=== PATIENT | female | born 2000 | race Caucasian/White ===

== ENCOUNTER 2023-07-21 11:41 | Outpatient (AMB) | payer OTHER, SELFPAY ==
[2023-07-21 12:21] VITALS: BP 118/70; PULSE 68; O2SAT 99; BMI 37.0
--- NOTE | 2023-07-21 12:21 | MHC.PC.OV ---
Vital Signs 07/21/23 12:21 Height 4 ft 7.5 in Weight 162 lb BMI 37.0 BP 118/70 Blood Pressure Location Lt brachial Position Sitting Pulse 68 Pulse Source Pulse Oximeter Pulse Oximetry (%) 99 Oxygen Delivery Method Room Air Intake Visit Reasons: Software Development Specialist, diabetes Intake Note: Patient is here as a new patient with diabetes. She has had issues with irregular menses. Is last menstrual period known: Yes Last menstrual period: 05/10/23 Allergies No Known Allergies Allergy (Verified 07/21/23 12:23) Tobacco use date assessed: 07/21/23 Dental Screening Dental Screen Date: 07/21/23 Did you have a dental visit in the last 12 months?: Yes Did you have a dental problem in the last 6 months where you did not have access to dental care?: No Was dental information given to patient?: Patient has dentist HPI Software Development Specialist, diabetes HPI Details New Patient? ?? Prior PCP:? [facility] Last office visit/CPE:? 2 yrs Acute issue(s):? irreg menses Concern for DM & Fam Hx Seizure-like activity most recently last summer ?? PMHx:?Downs Syndrome, Thyroid, SurgHx:?None FHx:?Mom PreDM, hypothyroid, HLD, Ductal Carcinoma Insitu in her 60s.. Dad: DM, HTN. SocHx: Nonsmoker. EtOH None PFSH Medical History (Updated 07/21/23 @ 13:22 by Lio Yu) Down's syndrome Surgical History (Updated 07/21/23 @ 12:31 by Delmy Goldman CMA) No pertinent past surgical history Family History (Updated 07/21/23 @ 12:35 by Delmy Goldman CMA) Mother Hypothyroid Breast tumor Osteopenia High cholesterol Father High cholesterol Diabetes Social History Housing: House Patient Tobacco Use Status: Never used Tobacco e-Cigarette/Vaping Use: Never Used service: No Current occupational status: employed Current occupation: works at a [employer] Cognitive needs: No Hearing needs: No Vision needs: Yes (Patient wears glasses.) Female Reproductive History Menstrual Date of last menstrual period: 05/10/23 Questionnaire PHQ-9 Over the last 2 weeks, how often have you been bothered by any of the following problems? 1. Little interest or pleasure in doing things: not at all 2. Feeling down, depressed, or hopeless: not at all 3. Trouble falling or staying asleep, or sleeping too much: not at all 4. Feeling tired or having little energy: not at all 5. Poor appetite or overeating: not at all 6. Feeling bad about yourself - or that you are a failure or have let yourself or your family down: not at all 7. Trouble concentrating on things, such as reading the newspaper or watching television: not at all 8. Moving or speaking so slowly that other people could have noticed. Or the opposite - being so fidgety or restless that you have been moving around a lot more than usual: not at all 9. Thoughts that you would be better off or of hurting yourself in some way: not at all Total score: 0 Depression Screening Interpretation: Negative Depression Screening Done: Yes 17873 - PHQ-9 Billing: Yes Source: Developed by Drs. Walter Luevano, Amna Noonan, Juve Urrutia and colleagues, with an educational ashley from [employer]. Thrive Questionnaire Date Thrive assessed: 07/21/23 I am a: Patient What is your living situation today?: I have a steady place to live Within the past 12 months, did the food you bought not last and you didn't have the money to get more?: Never true Within the past 12 months, did you worry whether your food would run out before you got money to buy more?: Never true Do you have trouble paying for medicines?: No Do you have trouble getting transportation to medical appointments?: No Do you have trouble paying your heating and electricity bill?: No Do you have trouble taking care of your child, family member or friend?: No Do you have trouble with day-to-day activities such as bathing, preparing meals, shopping, managing finances, etc.?: No Are you currently unemployed and looking for a job?: No Are you interested in more education?: No THRIVE Score: 0 AUDIT C Alcohol Use Questionnaire (AUDIT-C) 1. How often do you have a drink containing alcohol?: Never 3. How often do you have six or more drinks on one occasion?: Never Total Score: 0 BETH-7 AMB Questionnaire BETH-7 Date BETH - 7 assessed: 07/21/23 Feeling nervous, anxious, or on edge: 0 = Not at all Not being able to stop or control worryin = Not at all Worrying too much about different things: 0 = Not at all Trouble relaxin = Not at all Being so restless that it is hard to sit still: 0 = Not at all Becoming easily annoyed or irritable: 0 = Not at all Feeling afraid as if something awful might happen: 0 = Not at all Total BETH-7 score (0-4 normal; 5-9 mild; 10-14 moderate; 15-21 severe): 0 Source: Developed by Drs. Walter Luevano, Amna Noonan, Juve Urrutia and colleagues, with an educational ashley from [employer]. BETH-7 Assessment Billing BETH-7 Assessment Tool: BETH-7 Assessment 12343 Review of Systems Const Denies chills, Denies fatigue, Denies fever(s), Denies headache(s) and Denies weakness ENT Denies dizziness and Denies headache(s) Card Denies dyspnea Resp Denies cough, Denies dyspnea, Denies wheezing and Denies other (shortness of breath) Musc Denies numbness and Denies tingling Neuro Denies dizziness, Denies headache(s), Denies numbness, Denies tingling and Denies weakness Psych Denies anxiety and Denies depression Endo Denies fatigue Aller/Immun Denies wheezing Physical exam (Primary Care) Vital Signs: Last Vital Signs Pulse 68 07/21/23 12:21 BP 118/70 07/21/23 12:21 Pulse Ox 99 07/21/23 12:21 Oxygen Delivery Method Room Air 07/21/23 12:21 BMI result Body Mass Index 37.0 Tobacco/Smoking Status: Tobacco use Status Tobacco use date assessed 07/21/23 07/21/23 12:45 Patient Tobacco Use Status Never used Tobacco 07/21/23 12:45 e-Cigarette/Vaping Use Never Used 07/21/23 12:45 PHQ-9: PHQ-9 Score PHQ-9: Total score 0 07/21/23 13:02 Depression Screening Interpretation: Negative Thrive Assessment: Date of Thrive Assessment Date Thrive assessed 07/21/23 07/21/23 12:45 Const General: well developed; No acute distress Nutritional Appearance: obese Orientation/consciousness: patient oriented x3 HENMT Head: Yes normocephalic and Yes atraumatic Eyes General: appearance normal, both eyes and all related structures Pupils: Equal, round and reactive pupils present EOM: EOMs intact bilaterally Resp Effort & Inspection: normal respiratory effort Auscultation: clear to auscultation bilaterally Cardio Rate: regular rate Rhythm: regular rhythm Heart sounds: S1 normal heart sound present, S2 normal heart sound present, no gallops, no murmurs and no rubs Neuro General: patient oriented x3 and gait normal Cranial nerves: Yes Equal, round and reactive pupils present Psych Affect: normal affect Results AMB Hemoglobin A1c AMB Hemoglobin A1c 5.3 % Last Edit by Delmy Goldman CMA on 07/21/23 12:52 Results Reviewed Results Reviewed: Laboratory Last Values Hgb A1c (Clinic) 5.3 % (4.0-6.0) 07/21/23 12:46 Assessment and Plan Assessment & Plan (1) Down's syndrome: Code(s): Q90.9 - Down syndrome, unspecified Plan: Stable?and?patient?is?doing?well?in?her?studies?at?[employer] (2) Seizure-like activity: Code(s): R56.9 - Unspecified convulsions Plan: A?few?episodes?of?seizure-like?activity?with?a?postictal?state?afterwards Referred?to?neurology (3) Family history of diabetes mellitus: Code(s): Z83.3 - Family history of diabetes mellitus Plan: A1c?5.3%?is?in?normal?range?though?towards?upper?limits?of?this. Strong?family?history?of?diabetes Will?monitor Watch?sugars?and?starches?and?work?on?exercise?and?weight?loss (4) Irregular menses: Code(s): N92.6 - Irregular menstruation, unspecified Plan: Check?labs Refer?to?environmental engineering intern?and?she?is?also?due?for?1st??Pap?smear (5) Dermatitis: Code(s): L30.9 - Dermatitis, unspecified Plan: Will?give?her?a?script?for?betamethasone Can?use?Lubriderm?throughout?the?day (6) Screening for cervical cancer: Code(s): Z12.4 - Encounter for screening for malignant neoplasm of cervix Plan: As?above,?patient?is?22 Refer?to?environmental engineering intern?for?1st?Pap?smear. (7) Laboratory exam ordered as part of routine general medical examination: Code(s): Z00.00 - Encounter for general adult medical examination without abnormal findings Plan: Check?labs Orders: Orders Comprehensive [place]. Panel Fast Today R56.9 - Unspecified convulsions, Z00.00 - Encounter for general adult medical examination without abnormal findings Lipid Panel Today R56.9 - Unspecified convulsions, Z00.00 - Encounter for general adult medical examination without abnormal findings Microalbumin, Random (w Creat) Today I10 - Essential (primary) hypertension, R56.9 - Unspecified convulsions TSH reflex Free T4 Today R56.9 - Unspecified convulsions, Z00.00 - Encounter for general adult medical examination without abnormal findings Hepatitis B,C Profile Today R56.9 - Unspecified convulsions, Z11.3 - Encounter for screening for infections with a predominantly sexual mode of transmission Syphilis Screen Today R56.9 - Unspecified convulsions, Z11.3 - Encounter for screening for infections with a predominantly sexual mode of transmission Vitamin D 25-OH Total Today E55.9 - Vitamin D deficiency, unspecified, R56.9 - Unspecified convulsions Vitamin B12 and Folate Today E53.8 - Deficiency of other specified B group vitamins, R56.9 - Unspecified convulsions Progesterone Today N92.6 - Irregular menstruation, unspecified AMB Hemoglobin A1c Today Z13.9 - Encounter for screening, unspecified Complete Blood Count Auto Diff Today R56.9 - Unspecified convulsions, Z00.00 - Encounter for general adult medical examination without abnormal findings UA and rflx microscopic Today R56.9 - Unspecified convulsions, Z00.00 - Encounter for general adult medical examination without abnormal findings CT NG by PCR Today R56.9 - Unspecified convulsions, Z11.3 - Encounter for screening for infections with a predominantly sexual mode of transmission HIV Ab/Ag Today R56.9 - Unspecified convulsions, Z11.3 - Encounter for screening for infections with a predominantly sexual mode of transmission Lutenizing Hormone Today N92.6 - Irregular menstruation, unspecified Follicle Stimulating Hormone Today N92.6 - Irregular menstruation, unspecified Estrogen Today N92.6 - Irregular menstruation, unspecified Referrals Neurology Referral Q90.9 - Down syndrome, unspecified, R56.9 - Unspecified convulsions Coding Level of Care Code New Pt Level 3 (58794) Diagnoses Down's syndrome Q90.9 Seizure-like activity R56.9 Family history of diabetes mellitus Z83.3 Irregular menses N92.6 Dermatitis L30.9 Screening for cervical cancer Z12.4 Laboratory exam ordered as part of routine general medical examination Z00.00 Additional Codes BETH-7 Assessment Billing - BETH-7 Assessment Tool: BETH-7 Assessment 18974 ([id number])
== END 2023-07-21 13:32 | disposition home or self-care (01) ==
PROVIDERS: PCP Family Medicine; Visit Provider Family Medicine
DX: Q90.9 Down syndrome, unspecified (principal); R56.9 Unspecified convulsions; Z83.3 Family history of diabetes mellitus; N92.6 Irregular menstruation, unspecified; L30.9 Dermatitis, unspecified
CPT/HCPCS: 83036; 99203

== ENCOUNTER 2023-08-10 13:02 | Outpatient (AMB) | payer OTHER, SELFPAY ==
[2023-08-10 13:14] VITALS: BP 112/68; BMI 36.5
--- NOTE | 2023-08-10 13:14 | MHC.OFFVIS ---
Vital Signs 08/10/23 13:14 Height 4 ft 7.5 in Weight 160 lb BMI 36.5 BP 112/68 Intake Visit Reasons: New patient irregular menses/45 min Video Arcade Manager Required: No Video Arcade Manager Services: Video Arcade Manager Present Information Interpreted: clinical only Retort Or Condenser Press Operator: Retort Or Condenser Press Operator Present Allergies No Known Allergies Allergy (Verified 08/10/23 13:15) Medication List - Last Reconciled 08/10/23 by Shivani Austin CNM betamethasone valerate 0.1% 1 appl topical BID PRN 14 days multivitamin 1 tab PO DAILY Is last menstrual period known: No (no period since,2022) Do you need a note to return to daycare/school/sports/work: No HPI HPI New patient irregular menses/45 min: Details: Patient is accompanied by her mother Cecilia who did much of the talking for her. Annette is 22-year-old patient Down syndrome her mother shared that she has had irregular periods since she was about 14. At 1 point she was seen by pediatric endocrinology at [facility] and was prescribed control pills because she had not been getting her periods they worked for about a year but then the pandemic happened and she could not get appointments anymore so her periods have been much more irregular she has gone a long period of time without them although her mother thinks she had period in May of this year. She would like her to have something to start her periods again and she used told the control pills could be a good way to do this and prevent the lining of the uterus from building up.. Also when she finished with her rfid developer she has had a long time trying to find primary care provider and she just saw her new primary care provider recently and feels very happy that she is landed in place for care. The patient's mother held the patient's hand throughout this visit and shared that the only place her daughter goes without her is to school and she feels quite sure that she is not sexually active and she has not had a conversation with her yet about what gynecologic exams and Pap smears and speculum exam is involve. She voices strong certainty that her daughter's safe from any uninvited sexual contact. She also believes she declined the HPV vaccine from her rfid developer years ago. The patient expressed that she would be interested in having her period Again as well [facility] Medical History Down's syndrome Surgical History No pertinent past surgical history Family History Mother Hypothyroid Breast tumor Osteopenia High cholesterol Father High cholesterol Diabetes Social History Housing: House Patient Tobacco Use Status: Never used Tobacco e-Cigarette/Vaping Use: Never Used service: No Current occupational status: employed Current occupation: works at a [employer] Cognitive needs: No Hearing needs: No Vision needs: Yes (Patient wears glasses.) Female Reproductive History Menstrual Age of Menarche: 14 Duration of menses: 3-5 days control method: none Total pregnancies: 0 History of abnormal pap smear: No (no previous pap) Physical Exam Vital Signs: Last Vital Signs BP 112/68 08/10/23 13:14 BMI result Body Mass Index 36.5 Const Other: deferred. Patient held her mother's hand tightly throughout the visit. Assessment & Plan Assessment & Plan (1) Down's syndrome: Code(s): Q90.9 - Down syndrome, unspecified Category: Medical (2) Irregular menses: Code(s): N92.6 - Irregular menstruation, unspecified Category: Medical (3) Screening for cervical cancer: Comment: An explanation of pelvic exams -I did raise the subject today, also discussed HPV vaccines. mother and daughter to discuss and consider... Code(s): Z12.4 - Encounter for screening for malignant neoplasm of cervix Category: Medical Plan Discussed the challenges of periods of amenorrhea and the concern that the lining of the uterus can buildup and buildup until such time as there is a proliferation and it results in heavy uncontrolled bleeding that must the managed emergently if that were this were to occur I would recommend that she be seen at [facility] where there would be more options for managing in case a procedure were necessary and anesthesia required. Patient's mother says she understood this. And she also had brought her because of the concern for the long times no getting a period . I discussed options of either starting on control pills and seeing what would happen potential unscheduled bleeding at the start while she gets used to the pills or having 10 day course of Provera to bring on a withdrawal bleed the 1st several days of that withdrawal bleed/menstrual period, she could then start the control pills from that point on. The patient nodded affirmatively to the 2nd choice as did her mother. I discussed how to take the Provera a scheduled medication for 10 days and to expect a menstrual flow to start any time after stopping the Provera but often 3-4 days afterwards also discussed what to expect in terms of how it would make her feel, premenstrual, bloated and hungry and sometimes uncomfortable. Once she does start bleeding about 3 or 4 days into it I recommend she start the control pills but also use the dates sticker in the pill pack and place it in the control pills so she is clear to take them 1 pill every single day and and not to skip days between packs either go straight from 1 pack to the next to next we will see her in about 3 months to see how she is doing I also reviewed risk of blood clots thromboembolic events. They both have plans to become more physically active and I encouraged that as being sedentary is not helpful either. Neither smoke. In addition there was a lot of blood work that have been ordered by her primary care provider and I recommend they consider going to get that very soon it she would all be done fasting and the blood level should be done before considering starting Provera as some of them are hormonal levels and they would be affected by medications. Medications: New medroxyprogesterone (Provera) 10 mg PO DAILY 10 tabs 0RF desog-e.estradiol/e.estradiol 0.15-0.02 mgx21 /0.01 mg x 5 1 tab PO DAILY 84 tabs 4RF Coding Level of Care Code New Pt Level 4 (99030) Diagnoses Down's syndrome Q90.9 Irregular menses N92.6 Screening for cervical cancer Z12.4
== END 2023-08-10 14:18 | disposition home or self-care (01) ==
LOC: HO.HWSM 13:02
PROVIDERS: PCP Family Medicine; Visit Provider Advanced Practice Midwife
DX: Q90.9 Down syndrome, unspecified (principal); N92.6 Irregular menstruation, unspecified; Z12.4 Encounter for screening for malignant neoplasm of cervix
CPT/HCPCS: 99204

== ENCOUNTER → 2023-08-10 13:02 | Outpatient (BNVA) | payer OTHER, SELFPAY | PROVIDERS: PCP Family Medicine; Visit Provider Advanced Practice Midwife ==

== ENCOUNTER 2023-08-11 07:46 | Outpatient (REF) | payer OTHER, SELFPAY ==
[2023-08-11 13:10] LABS: MANUAL DIFF FLAG NO
[2023-08-11 13:15] LABS: Basophils Absolute Auto 0.1 X10*3/uL (0.0-0.2); Basophils Percent Auto 1.7 % (0-2); Eosinophils Absolute Auto 0.1 X10*3/uL (0.0-0.4); Eosinophils Percent Auto 0.7 % (0-4); Hematocrit 46.1 % (37.0-47.0); Hemoglobin 15.2 g/dl (12.0-16.0); Imm Gran Abs Auto 0.03 X10*3/uL (0.00-0.03); Imm Gran Pct Auto 0.4 % (0.0-0.4); Lymphocytes Absolute Auto 3.7 X10*3/uL (1.2-4.9); Lymphocytes Percent Auto 44.2 % (20-40); Mean Corpuscular Hemoglobin 31.7 pg (27.0-33.0); Mean Corpuscular Volume 96.2 fL (80.0-98.0); Mean Platelet Volume 8.8 fL (9.4-12.3); Monocytes Absolute Auto 0.5 X10*3/uL (0.1-1.2); Monocytes Percent Auto 5.5 % (2-11); Neutrophils Percent Auto 47.5 % (45-73); Platelet Count 232 X10*3/uL (160-400); Red Blood Count 4.79 X10*6/uL (4.20-5.50); Red Cell Distribution Width 13.1 % (11.0-16.0); White Blood Count 8.4 X10*3/uL (4.8-10.8)
[2023-08-11 13:22] LABS: Appearance Urine Clear; Color Urine Yellow; Glucose Urine UA Negative (Negative); Leukocyte Esterase Urine Negative (Negative); Nitrite Urine Negative (Negative); PH 6.5 (5.0-9.0); Urine Blood Negative (Negative); Urine Ketones Negative (Negative); Urine Protein Negative (Neg-Trace)
[2023-08-11 13:34] LABS: Alanine Aminotransferase 51 U/L (0-31); Albumin Level 4.2 g/dL (3.5-5.0); Alkaline Phosphatase 78 U/L (39-117); Anion Gap 13 (12-20); Aspartate Amino Transferase 42 U/L (5-31); Bilirubin Total 0.6 mg/dL (0.0-1.0); Blood Urea Nitrogen 10 mg/dL (9-16); Calcium 9.5 mg/dL (8.4-10.2); Carbon Dioxide 27 mmol/L (22-29); Chloride 103 mmol/L (96-108); Cholesterol 184 mg/dL (<200); Estimated Glomerular Filt Rate > 60; Glucose Fasting 87 mg/dL (60-99); HDL Cholesterol 44 mg/dL (>40); LDL Cholesterol Calculated 99 mg/dL (<100); Potassium 4.1 mmol/L (3.3-5.1); Sodium 139 mmol/L (135-145); Total Protein 7.5 g/dL (6.5-8.0); Triglycerides 205 mg/dL (<150)
[2023-08-11 13:52] LABS: TSH reflex Free T4 3.18 uIU/mL (0.32-4.0); Vitamin D 25-OH Total 54.3 ng/mL (>30)
[2023-08-11 13:55] LABS: Syphilis Screen Nonreactive (Nonreactive)
[2023-08-11 13:56] LABS: HBS Num1 0.18 mIU/mL (0-7.99); HBc Num1 1.37 S/CO (0.00-0.79); HBsAGNum1 0.25 S/CO (0.00-0.99); HIV AB/AG Nonreactive (Nonreactive); Hepatitis B Surface Antigen Negative (Negative); ~HepC Num1 0.41 S/CO (0.00-0.79); ~Hepatitis B Surface Antibody NONREACTIVE (Nonreactive); ~Hepatitis C Antibody Nonreactive (Nonreactive)
[2023-08-11 13:57] LABS: Folate 13.3 ng/mL (> or = 4.0); Vitamin B12 915 pg/mL (200-900)
[2023-08-11 14:09] LABS: Creatinine Urine 113.64 mg/dL; Microalbumin Urine < 5.0 mg/L
[2023-08-11 14:53] LABS: HBc Num2 0.14 S/CO; HBc Num3 0.15 S/CO; Hepatitis B Core Antibody Nonreactive (Nonreactive)
[2023-08-12 10:09] LABS: Follicle Stimulating Hormone 4.4 mIU/mL; Lutenizing Hormone 11.4 mIU/mL
[2023-08-17 19:59] LABS: Progesterone <0.1 ng/mL
[2023-08-20 20:44] LABS: Estrogen 868 pg/mL
== END 2023-08-11 07:47 | disposition home or self-care (01) ==
LOC: HO.WFDLDS 07:46
PROVIDERS: Visit Provider Family Medicine
DX: Z00.00 Encounter for general adult medical examination without abnormal findings (principal); E55.9 Vitamin D deficiency, unspecified; R56.9 Unspecified convulsions; E53.8 Deficiency of other specified B group vitamins; N92.6 Irregular menstruation, unspecified; I10 Essential (primary) hypertension; Z11.3 Encounter for screening for infections with a predominantly sexual mode of transmission
CPT/HCPCS: 36415; 80053; 80061; 81003; 82043; 82306; 82570; 82607; 82672; 82746; 83001; 83002; 84144; 84443; 85025; 86704; 86706; 86780; 86803; 87340; 87389

== ENCOUNTER 2023-10-07 07:49 | Outpatient (AMB) | payer OTHER, SELFPAY ==
--- NOTE | 2023-10-07 08:04 | MHC.PC.OV ---
Vital Signs 10/07/23 08:06 Height 4 ft 7.5 in Weight 158 lb 4 oz BMI 36.1 BP 102/58 L Blood Pressure Location Rt brachial Position Sitting Respiration 14 Pulse 60 Pulse Source Palpation Temp 98.7 F Temp Source Oral Intake Visit Reasons: CPE with f/u labs and health maint. Allergies No Known Allergies Allergy (Verified 08/10/23 13:15) Medication List - Last Reconciled 10/07/23 by Quita Red PA-C multivitamin 1 tab PO DAILY Tobacco use date assessed: 07/21/23 Dental Screening Dental Screen Date: 07/21/23 HPI CPE with f/u labs and health maint. HPI Details Patient is a 22-year-old female with a significant past medical history of Down syndrome presenting today for a physical exam. She normally follows with Dr. Lee and recently was seen to establish care and had labs. She is accompanied today by her mother who provides most of the history. -patient lives at home with both parents and goes to school. Recently started with increased activities of walking and biking. She does have flat feet and states that walking long distances is painful. Neuro: This past year she started with some ?seizure-like activity?. She has not seen a neurologist yet but did have a referral placed in July and states that her appointment keeps getting bumped. A few weeks ago patient had another episode where she was staring into space and looked like she was about to follow over. Her mother guided her down to the couch and she states that the patient started convulsing and her tongue was bitten. No incontinence. She states that this episode went on for at least 5 minutes but felt longer. She did appear out of it for about an hour afterwards. She did not call the ambulance because the last time this happened in the ER they told her she was possibly dehydrated. She states when they were at the ER they did do an EKG and labs. This is now happened a few times. The patient has been well hydrated, eats relatively regularly, denies any palpitations or dizziness with movement or position changes. Managing Member: Recently saw Gynecology for irregular menses. Not currently on any OCPs. States that she is supposed to follow up in a few months. Derm: She states that the betamethasone cream helped only minimally to her ankles. [facility] Medical History Down's syndrome Surgical History No pertinent past surgical history Family History Mother Hypothyroid Breast tumor Osteopenia High cholesterol Father High cholesterol Diabetes Social History Housing: House Patient Tobacco Use Status: Never used Tobacco e-Cigarette/Vaping Use: Never Used service: No Current occupational status: employed Current occupation: works at a [employer] Cognitive needs: No Hearing needs: No Vision needs: Yes (Patient wears glasses.) Female Reproductive History Menstrual Age of Menarche: 14 Questionnaire PHQ-9 Over the last 2 weeks, how often have you been bothered by any of the following problems? 1. Little interest or pleasure in doing things: not at all 2. Feeling down, depressed, or hopeless: not at all 3. Trouble falling or staying asleep, or sleeping too much: not at all 4. Feeling tired or having little energy: not at all 5. Poor appetite or overeating: not at all 6. Feeling bad about yourself - or that you are a failure or have let yourself or your family down: not at all 7. Trouble concentrating on things, such as reading the newspaper or watching television: not at all 8. Moving or speaking so slowly that other people could have noticed. Or the opposite - being so fidgety or restless that you have been moving around a lot more than usual: not at all 9. Thoughts that you would be better off or of hurting yourself in some way: not at all Total score: 0 Depression Screening Interpretation: Negative Depression Screening Done: Yes Source: Developed by Drs. Walter Luevano, Aman Noonan, Juve Urrutia and colleagues, with an educational ashley from [employer]. Thrive Questionnaire Date Thrive assessed: 07/21/23 AUDIT C Alcohol Use Questionnaire (AUDIT-C) 1. How often do you have a drink containing alcohol?: Never Total Score: 0 Score Reviewed/Action Taken: Yes BETH-7 AMB Questionnaire BETH-7 Date BETH - 7 assessed: 07/21/23 Feeling nervous, anxious, or on edge: 0 = Not at all Not being able to stop or control worryin = Not at all Worrying too much about different things: 0 = Not at all Trouble relaxin = Not at all Being so restless that it is hard to sit still: 0 = Not at all Becoming easily annoyed or irritable: 0 = Not at all Feeling afraid as if something awful might happen: 0 = Not at all Total BETH-7 score (0-4 normal; 5-9 mild; 10-14 moderate; 15-21 severe): 0 Source: Developed by Drs. Walter Luevano, Amna Noonan, Juve Urrutia and colleagues, with an educational ashley from [employer]. BETH-7 Assessment Billing BETH-7 Assessment Tool: BETH-7 Assessment 02885 Physical exam (Primary Care) Tobacco/Smoking Status: Tobacco use Status Tobacco use date assessed 07/21/23 07/27/23 14:58 Patient Tobacco Use Status Never used Tobacco 07/27/23 14:58 e-Cigarette/Vaping Use Never Used 07/27/23 14:58 Depression Screening Interpretation: Negative Thrive Assessment: Date of Thrive Assessment Date Thrive assessed 07/21/23 07/27/23 14:58 Const Orientation/consciousness: patient oriented x3 HENMT Ears: hearing grossly normal bilaterally and TM's normal bilaterally General nose exam: No nasal polyps present Face and sinus: Yes sinuses nontender Mouth: Normal oral and palatal mucosa present Eyes Pupils: Equal, round and reactive pupils present EOM: EOMs intact bilaterally Neck Neck: Yes full ROM and Yes no lymphadenopathy Thyroid: Thyroid normal Chest Chest palpation & inspection: normal inspection of the chest Resp Auscultation: clear to auscultation bilaterally Cardio Rate: regular rate Rhythm: regular rhythm Heart sounds: S1 normal heart sound present and S2 normal heart sound present Peripheral pulses: Peripheral pulses 2+ throughout GI Other: Soft, nontender Auscultation: normal bowel sounds Rectal Exam - Female: deferred General: Yes no CVA tenderness Back/Spine/Pelvis Other: Nontender Back: no CVA tenderness Skin General skin exam: no rashes or lesions noted Neuro General: patient oriented x3, gait normal, CN's II-XI intact bilaterally and deep tendon reflexes 2+ bilaterally Cranial nerves: Yes Equal, round and reactive pupils present Motor exam (neuro): 5/5 motor strength present throughout Sensory Exam: double simultaneous stimulation for sensation normal Coordination: [id number] test normal and Romberg test negative Extrem General: Yes normal to inspection and Yes full ROM Psych Affect: normal affect Attitude: cooperative Thought process: Normal thought process present Thought content: Normal thought content present Insight: Good insight present (Psych) Judgement: Good judgement present (Psych) Results Reviewed Results Reviewed: Laboratory Tests 07/21/23 08/11/23 12:46 07:48 WBC 8.4 RBC 4.79 Hgb 15.2 Hct 46.1 Plt Count 232 Sodium 139 Potassium 4.1 Chloride 103 Carbon Dioxide 27 Anion Gap 13 BUN 10 Creatinine 0.96 Estimated GFR > 60 Fasting Glucose 87 Hgb A1c (Clinic) 5.3 Calcium 9.5 Total Bilirubin 0.6 AST 42 H ALT 51 H Alkaline Phosphatase 78 Triglycerides 205 H Cholesterol 184 LDL Cholesterol, Calc 99 HDL Cholesterol 44 Vitamin B12 915 H 25-OH Vitamin D Total 54.3 TSH 3.18 Estrogen 868 FSH 4.4 Luteinizing Hormone 11.4 Progesterone <0.1 Assessment and Plan Assessment & Plan (1) Routine general medical examination at a health care facility: Code(s): Z00.00 - Encounter for general adult medical examination without abnormal findings Plan: reviewed. Labs reviewed. Discussed the elevated LFTs. She does eat a diet high in processed foods and they are working on this. (2) Down's syndrome: Code(s): Q90.9 - Down syndrome, unspecified Plan: Denies any need for cardiac intervention. Had PT/OT and is still in school. Living at home with parents. (3) Seizure-like activity: Code(s): R56.9 - Unspecified convulsions Plan: MRI ordered. Advised to contact Neurology and that if this happens again to go to the ER. (4) Dermatitis: Code(s): L30.9 - Dermatitis, unspecified Plan: We will try clobetasol cream. We will refer patient to [facility]. Phone number provided. Advised to moisturize skin regularly with a cream like CeraVe, Cetaphil, Aveeno, Eucerin etc.. (5) Elevated LFTs: Code(s): R79.89 - Other specified abnormal findings of blood chemistry Plan: Working on diet changes. We will recheck in 1 month. Orders: Orders MR head/brain wo con Today R56.9 - Unspecified convulsions Liver Panel Today L30.9 - Dermatitis, unspecified, R79.89 - Other specified abnormal findings of blood chemistry Referrals Dermatology Referral L30.9 - Dermatitis, unspecified Medications: New clobetasol 0.05% 1 appl topical BID 2 weeks 60 grams 1RF Coding Level of Care Code Est Pt Prev Care 18-39y([id number]) Diagnoses Routine general medical examination at a health care facility Z00.00 Down's syndrome Q90.9 Seizure-like activity R56.9 Dermatitis L30.9 Elevated LFTs R79.89 Additional Codes BETH-7 Assessment Billing - BETH-7 Assessment Tool: BETH-7 Assessment [id number] ([id number])
[2023-10-07 08:06] VITALS: BP 102/58; PULSE 60; RESP 14; TEMP 37.1; BMI 36.1
== END 2023-10-07 08:42 | disposition home or self-care (01) ==
PROVIDERS: PCP Family Medicine; Visit Provider Physician Assistant
DX: Z00.00 Encounter for general adult medical examination without abnormal findings (principal); Q90.9 Down syndrome, unspecified; R56.9 Unspecified convulsions; L30.9 Dermatitis, unspecified; R79.89 Other specified abnormal findings of blood chemistry
CPT/HCPCS: 99395

== ENCOUNTER 2023-10-31 09:25 | Outpatient (REF) | payer OTHER, SELFPAY ==
--- NOTE | ~2023-10-31 | MR_ITS ---
EXAMINATION: MR BRAIN WITHOUT CONTRAST CLINICAL INFORMATION: Unspecified convulsions. COMPARISON: None. TECHNIQUE: Multiplanar, multisequence imaging of the brain was performed without contrast. Limited study with motion artifacts. FINDINGS: No diffusion abnormalities are identified to suggest an acute or subacute infarct. The ventricles are normal in size. No mass effect or midline shift is seen. No brain parenchymal signal abnormality is noted. No extra-axial fluid collections are seen. The brainstem and cerebellum are normal. The hippocampi are normal in appearance. The heme sensitive acquisition demonstrates no pathologic magnetic susceptibility artifact to indicate underlying acute or chronic blood products. The craniovertebral junction, marrow signal, and midline structures are normal. The major intracranial flow voids at the level of the tunica-biloxi of Tiwari are preserved. The dural venous sinus flow voids are maintained. The mastoid air cells and paranasal sinuses are well aerated. MR/MR head/brain wo con IMPRESSION: Limited MRI of the brain with motion artifacts. Otherwise, no hippocampal pathology or epileptogenic focus identified. Electronically signed by: Angel Gomez MD 11/02/2023 03:25 PM EDT
== END 2023-10-31 09:26 | disposition home or self-care (01) ==
LOC: HO.MRI 09:25
PROVIDERS: PCP Family Medicine; Visit Provider Physician Assistant
DX: R56.9 Unspecified convulsions (principal)
CPT/HCPCS: 70551

== ENCOUNTER → 2024-03-15 09:14 | Outpatient (BNVA) | payer MEDICAID, SELFPAY | PROVIDERS: PCP Family Medicine; Visit Provider Psychiatry & Neurology Neurology | DX: R55 Syncope and collapse (principal); R06.83 Snoring; R56.9 Unspecified convulsions; Q90.9 Down syndrome, unspecified | CPT/HCPCS: 99202 ==

== ENCOUNTER 2024-04-07 08:37 | Outpatient (REF) | payer MEDICAID, SELFPAY ==
--- OUTSIDE RECORDS SUMMARY | 2024-04-07 08:54 | XMS_ITS | Encounter Summary ---
Author Organization [facility] Address [address] [place] [address] Phone Care Team Providers Care Multi Care Technician Name Role Phone Summer Walter NP Primary Care Provider [phone] Encounter Details Date Type Department Care Team (Late st Contact Info) Description 06/27/2017 Conversion [facility]counter [facility] [address] [place] [address] Galindo Arellano MD Social History Tobacco Use Types Packs/Day Years Used Date Smoking Tobacco: Never Assessed Comments Unknown Sex and Gender Information Value Date Recorded Sex Assigned at Not on file Legal Sex Female 6:26 PM EDT Gender Identity Not on file Sexual Orientation Not on file documented as of this encounter Plan of Treatment Not on file documented as of this encounter Visit Diagnoses Not on filedocumented in this encounter Care Teams Multi Care Technician Relationship Specialty Start Date End Date Summer Walter NP [address] [place] [address] PCP - General Pediatrics 05/19/22 01/11/24 documented as of this encounter
--- OUTSIDE RECORDS SUMMARY | 2024-04-07 08:54 | XMS_ITS | Clinical Summary ---
Author Organization [facility] Address [address] [place] [address] Phone Care Team Providers Care Email Specialist Name Role Phone Unavailable Primary Care Provider Unavailabl e Allergies No known active allergies Medications Multiple Vitamins-Minerals (MULTIVITAMIN GUMMIES ADULT PO) Take by mouth. Active omeprazole 20 MG EC tabletIndications:El evated anti-tissue transglutaminase (tTG) IgA level Take 20 mg by mouth daily. Take medicine one hour before eating. Active norethindrone-ethiny l estradiol-ferrous fumarate () 1-20 MG-MCG(24) per tabletIndications:Se condary amenorrhea Take 1 tablet by mouth daily. 84 tablet 3 3 Active Active Problems Problem Noted Date Diagnosed Date Vasovagal syncope 08/26/2022 Assessment & Plan (08/26/2022 12:59 PM EDT): Suspect vagovagal related to poor fluid intake on very hot/humid day. Continue to push fluids, eating regularly throughout the day, and some salt in the diet. EKG was normal, but if another episode were to occur, would refer to cardiology for further evaluation, likely event monitor. Vaccine refused by parent 05/19/2022 Assessment & Plan (05/19/2022 2:15 PM EDT): Meningitis #2 encouraged, declined by parents. Elevated anti-tissue transglutaminase (tTG) IgA level 01/09/2020 Overview (02/21/2020): GI 12/28 - possible false positive, repeat lab in addition to HLA typing. If positive, will proceed with upper endoscopy. GI 02/28 - HLA typing negative with EGD biopsies negative for signs of Celiac. Celiac antibodies likely due to other autoimmune inflammation or due to the gastritis. EGD showed esophagitis and gastritis, will treat with omeprazole for 3 months, then famotidine for 3 months and f/u in 6 mo Assessment & Plan (04/25/2020 12:20 PM EDT): Followed by GI. Normal endoscopy, on omeprazole for gastritis. 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 Check thyroid function q 6 months Assessment & Plan (05/19/2022 2:15 PM EDT): Due for recheck of thyroid labs, ordered. Assessment & Plan (04/25/2020 12:20 PM EDT): Due for 6 month endo f/u and labs. Mom will call to schedule. Down syndrome 11/17/2016 Overview (11/19/2017): Normal hearing eval at [place] 2017 Flat feet - orthotics at [facility] Followed by Dr. Medrano for ophthalmology Assessment & Plan (05/19/2022 2:16 PM EDT): Normal hearing screen in office. Due for ophthalmology follow up which mom will call to schedule. Monitor snoring and for signs of apnea, if there are concerns would obtain sleep study. Pending thyroid labs, consider nutrition consult. Assessment & Plan (04/25/2020 12:22 PM EDT): Due for hearing evaluation. Mom will call either [facility] or [facility] to schedule. Suggested mom discuss a referral to labor relations teacher with endo or GI. Assessment & Plan (03/14/2019 2:02 PM EST): Annette is doing great in 11th grade. Reviewed vaccines that she is due for, mom wanted to discuss with dad prior to administering. Return at any time. Assessment & Plan (11/19/2017 1:18 PM EDT): Doing well. Parents working on getting Annette to increase activity, try new foods, vegetables. Planning on meeting with labor relations teacher at [facility]. Normal hearing last year at [place] and upcoming eye appt with Dr. Medrano. I would like to check TSH and Celiac as these were not done. Recommended bringing Annette to the [facility] pediatric specialty office for blood draw to make experience less traumatic and they agree. Secondary amenorrhea 11/17/2016 Overview (01/09/2020): Endo 10/28: +Provera challenege. Ddx PCOS vs hyperprolactinemia. With otherwise normal anterior pituitary panel, opted not to MRI. Options for Provera q 3 months vs daily OC. Opted for latter, start Junel after Provera challenge to induce withdrawal bleed. Assessment & Plan (05/19/2022 2:15 PM EDT): Will restart Junel which she had done well on previously. Assessment & Plan (04/25/2020 12:19 PM EDT): Managed by endo on OCP. Assessment & Plan (03/14/2019 2:01 PM EST): Most recent labs from 04/26 with mildly elevated TSH, TTg, DHEA-S, prolactin, and LH:FSH 3.3. I tried to reach family several times with results without response. Discussed with mom that I would like to go ahead with endocrinology referral and she agrees. Assessment & Plan (11/19/2017 1:18 PM EDT): Reordered labs that were not done last year in addition to thyroid and Celiac. Immunizations Immunization Administration Dates Next Due DTaP 11/17/2005, 4,05/19/2002,03/17,01/20/2002 Hep B, ped/adol 08/18/2002,2001,2001 Hib (PRP-T) 01/30/2003, 3,03/17/2002,01/20 IPV 11/17/2005, 4,03/17/2002,01/20 Influenza, injectable, quadrivalent 11/09,11/29/2006,11/23/2005,11/20 Influenza, injectable,og valent, preservative free, pediatric 11/20/2003 MMR 11/17/2005,01/30/2003 Meningococcal Conj (Menactra) MCV4P 03/07/2013 Pneumococcal Conjugate 11/17/2002,2002,03/17/2002,01/20 Tdap 03/07/2013 Varicella 11/29/2006,11/17/2002 Family History Medical History Relation Name Comments Hyperlipidemia Father Thyroid disease Mother hypo Relation Name Status Comments Father Alive Mother Alive Social History Tobacco Use Types Packs/Day Years Used Date Smoking Tobacco: Never Smokeless Tobacco: Never Alcohol Use Standard Drinks/Week Comments No 0 (1 standard drink = 0.6 oz pur e alcohol) Hunger/Food Answer Date Recorded In the last 12 months, did y ou or your family ever eat less than you felt you should because there wasn't enough money for food? No 05/19/2022 Stable Housing Answer Date Recorded Are you worried that in the next 2 months you may not have stable housing? No 05/19/2022 Transportation Concerns Answer Date Rec orded In the last 12 months, have you or your family ever had to go without healthcare because you didn't have a way to get there? No 05/19/2022 Hazards in Home Answer Date Recorded Think about the place you li ve. Do you have problems with any of the following? Pests (mice or roaches), mold, no/not working smoke detectors, water leaks, no window guards. No 2022 Financing Utilities Answer Date Recorde d In the last 12 months, has t he electric, gas, oil, or water company threatened to shut off your services in your home? No 05/19/2022 Safety at Home Answer Date Recorded Are you or your family worried about feeling saf e in your home? No 05/19/2022 Outside Support Answer Date Recorded Do you feel that you need mo re support from other people or programs to help you care for yourself or your family? No 05/19/2022 Understanding Health Concerns Answer Da te Recorded Do you need help understandi ng your or your child's healthcare needs (diagnosis, medications, plan, etc.)? No 05/19/2022 Financing Health Concerns Answer Date R ecorded In the last 12 months, was t here a time when your child needed to see a doctor or get medications or supplies but could not because of cost? No 05/19/2022 Missing School or Work Answer Date Emery rded Did you or your child miss s chool or work because of a health problem that could have been avoided? No 05/19/2022 Comments No Sex and Gender Information Value Date Recorded Sex Assigned at Not on file Legal Sex Female 6:26 PM EDT Gender Identity Not on file Sexual Orientation Not on file Last Filed Vital Signs Vital Sign Reading Time Taken Comments Blood Pressure 104/70 08/26/2022 9:54 AM EDT Pulse 104 08/26/2022 9:54 AM EDT Temperature 37 ??C (98.6 ??F) 08/26/2022 9:43 AM EDT Respiratory Rate - - Oxygen Saturation 97% 04/30/2020 2:10 PM EDT Inhaled Oxygen Concentration - - Weight 73.8 kg (162 lb 12.8 oz) 08/26/2022 9:43 AM EDT Height 141 cm (4' 7.51 ) 05/19/2022 9:29 AM EDT Body Mass Index 37.14 05/19/2022 9:29 AM EDT Plan of Treatment Health Maintenance Due Date Last Done Comments HPV Vaccines (1 - 3-dose series) 2016 Men B Vaccine (1 of 2 - Standard) 2017 DTaP,Tdap,and Td Vaccines (7 - Td or Tdap) 03/07/2023 03/07/2013, 11/17/2005, 05/17/2003, Additional history exists Influenza Vaccines (#1) 2023 12/07/19 09, 11/29/2006, 11/23/2005, Additional history exists COVID-19 Vaccine ( season) 2023 Hepatitis B Vaccines Completed 08/18/2002, 2001, 2001 Pneumococcal Vaccine Completed 11/17/2002, 05/19/2002, 03/17/2002, Additional history exists HIB Vaccines Completed 01/30/2003, 05/09, 03/17/2002, Additional history exists IPV Vaccines Completed 11/17/2005, 0 09/2003, 03/17/2002, Additional history exists MMR Vaccines Completed 11/17/2005, 01/30/2003 Varicella Vaccines Completed 11/29/2006, 11/17/2002 Meningococcal Vaccine Aged Out 03/07/2013 No leanna basilia eligible based on patient's age to complete this topic Hepatitis A Vaccines Aged Out No long er eligible based on patient's age to complete this topic Insurance [facility]
[2024-04-07 11:04] LABS: MANUAL DIFF FLAG NO
[2024-04-07 11:05] LABS: Appearance Urine Clear; Color Urine Yellow; Glucose Urine UA Negative (Negative); Leukocyte Esterase Urine Trace (Negative); Nitrite Urine Negative (Negative); PH 6.5 (5.0-9.0); UMIC TRIGGER UA YES; Urine Blood Negative (Negative); Urine Ketones Negative (Negative); Urine Protein Negative (Neg-Trace)
[2024-04-07 11:11] LABS: Bacteria Urine Trace (None Seen); Hyaline Casts Urine 0-2 /LPF (0-2); RBC Urine 0-2 /HPF (0-2); WBC Urine 0-5 /HPF (0-5)
[2024-04-07 11:12] LABS: Basophils Absolute Auto 0.2 X10*3/uL (0.0-0.2); Basophils Percent Auto 1.9 % (0-2); Eosinophils Absolute Auto 0.1 X10*3/uL (0.0-0.4); Eosinophils Percent Auto 0.8 % (0-4); Hematocrit 46.3 % (37.0-47.0); Hemoglobin 15.7 g/dl (12.0-16.0); Imm Gran Abs Auto 0.04 X10*3/uL (0.00-0.03); Imm Gran Pct Auto 0.4 % (0.0-0.4); Lymphocytes Absolute Auto 2.5 X10*3/uL (1.2-4.9); Lymphocytes Percent Auto 26.9 % (20-40); Mean Corpuscular HGB Conc 33.9 g/dl (31.0-35.0); Mean Corpuscular Hemoglobin 32.2 pg (27.0-33.0); Mean Corpuscular Volume 95.1 fL (80.0-98.0); Monocytes Absolute Auto 0.4 X10*3/uL (0.1-1.2); Monocytes Percent Auto 4.5 % (2-11); Neutrophils Absolute Auto 6.2 x10*3/uL (2.0-8.3); Neutrophils Percent Auto 65.5 % (45-73); Platelet Count 343 X10*3/uL (160-400); Red Blood Count 4.87 X10*6/uL (4.20-5.50); White Blood Count 9.4 X10*3/uL (4.8-10.8)
[2024-04-07 11:40] LABS: Microalbumin Urine < 5.0 mg/L
[2024-04-07 11:53] LABS: Alanine Aminotransferase 48 U/L (0-31); Albumin Level 4.2 g/dL (3.5-5.0); Alkaline Phosphatase 79 U/L (39-117); Anion Gap 11 (12-20); Aspartate Amino Transferase 38 U/L (5-31); Bilirubin Total 0.6 mg/dL (0.0-1.0); Blood Urea Nitrogen 9 mg/dL (9-16); Calcium 9.3 mg/dL (8.4-10.2); Carbon Dioxide 28 mmol/L (22-29); Chloride 105 mmol/L (96-108); Cholesterol 181 mg/dL (<200); Estimated Glomerular Filt Rate > 60; Glucose Fasting 88 mg/dL (60-99); HDL Cholesterol 46 mg/dL (>40); LDL Cholesterol Calculated 94 mg/dL (<100); Potassium 4.1 mmol/L (3.3-5.1); Sodium 140 mmol/L (135-145); Triglycerides 209 mg/dL (<150)
[2024-04-07 11:59] LABS: TSH reflex Free T4 3.29 uIU/mL (0.32-4.0)
== END 2024-04-07 08:38 | disposition home or self-care (01) ==
LOC: HO.WFDLDS 08:37
PROVIDERS: Visit Provider Family Medicine
DX: Z00.00 Encounter for general adult medical examination without abnormal findings (principal); I10 Essential (primary) hypertension
CPT/HCPCS: 36415; 80053; 80061; 81001; 81003; 82043; 82570; 84443; 85025

== ENCOUNTER 2024-04-20 08:10 | Outpatient (REF) | payer OTHER, SELFPAY ==
--- NOTE | 2024-04-20 08:17 | EEG_ITS ---
This is a 16-channel EEG with an EKG lead. The patient is reported awake during the tracing. Background EEG rhythm is about 12 to 20 hertz, 5 to 70 microvolt posteriorly lower amplitude fast anteriorly. Quite frequently left temporal and many times, right temporal sharply contoured discharges were noted. Some muscle artifacts were noted in anterior leads. Photic stimulation did not produce any significant abnormality. Hyperventilation was not performed. Cardiac lead did not reveal any significant abnormality. IMPRESSION: Abnormal EEG suggestive of bitemporal, left more than right, irritability suggestive of underlying tendency for seizure disorder. MD ALYSON Ulloa/ROMI / [id number]
== END 2024-04-20 08:11 | disposition home or self-care (01) ==
LOC: HO.NEURO 08:10
PROVIDERS: PCP Family Medicine; Visit Provider Psychiatry & Neurology Neurology
DX: R55 Syncope and collapse (principal); R56.9 Unspecified convulsions
CPT/HCPCS: 95816

== ENCOUNTER 2024-07-20 08:55 | Outpatient (AMB) | payer OTHER, SELFPAY ==
--- NOTE | 2024-07-20 09:20 | MHC.OFFVIS ---
Vital Signs 07/20/24 09:23 Height 4 ft 7.5 in Weight 169 lb 5.04 oz BMI 38.6 BP 110/76 Blood Pressure Location Lt brachial Position Sitting Pulse 81 Pulse Source Monitor Intake Visit Reasons: BRICKLAYER HELPER/Athreya/Syncope and collapse Universal Branch Consultant Required: No Engineering Technology Instructor: Engineering Technology Instructor Present Accompanied by: Mother Allergies No Known Allergies Allergy (Verified 03/15/24 09:23) Medication List - Last Reconciled 07/20/24 by David Anderson MD levetiracetam (Keppra) 500 mg (5 mL) PO Q12H 30 days lorazepam 0.5 mg PO BID PRN multivitamin 1 tab PO DAILY HPI Comments Details: Annette is here for consultation regarding question of syncope versus seizure. She has Down syndrome. She has been recently seen by Neurology and referred to us. However, it seems that after that referral she actually underwent an EEG that showed seizures and she was put on antiseizure medication. With that, it seems the symptoms resolved completely. In any case, mother states that patient suddenly has spells where she can fall down. Her eyes start staring and this last for few sec or so and after that, she is back to normal self. There is no bowel or bladder incontinence. No tongue bites. There is no associated cardiac symptoms like palpitations or anything else. There is no other prior cardiac history either. [facility] Medical History (Updated 07/20/24 @ 09:57 by David Anderson MD) Snoring Pre-syncope Down's syndrome Surgical History No pertinent past surgical history Family History Mother Hypothyroid Breast tumor Osteopenia High cholesterol Father High cholesterol Diabetes Social History (Updated 07/20/24 @ 09:25 by Janina Longo CMA) Household Members: Family Housing: House Alcohol intake: never Patient Tobacco Use Status: Never used Tobacco e-Cigarette/Vaping Use: Never Used service: No Current occupational status: employed Current occupation: works at a [employer] Cognitive needs: No Hearing needs: No Vision needs: Yes (Patient wears glasses.) Female Reproductive History Menstrual Age of Menarche: 14 Review of Systems Const Denies chills, Denies fatigue, Denies fever(s), Denies frequent falls, Denies weakness, Denies weight gain and Denies weight loss ENT Denies dizziness Card Denies chest pain, Denies leg edema, Denies lightheadedness, Denies palpitations, Denies dyspnea, Denies dyspnea on exertion and Denies orthopnea Resp Denies cough, Denies dyspnea and Denies dyspnea on exertion GI Denies bloating and Denies change in bowel habits Musc Denies muscle weakness, Denies numbness and Denies tingling Neuro Denies dizziness, Denies frequent falls, Denies numbness, Denies tingling and Denies weakness Endo Denies fatigue and Denies palpitations Physical Exam Vital Signs: Last Vital Signs Pulse 81 07/20/24 09:23 BP 110/76 07/20/24 09:23 BMI result Body Mass Index 38.6 Const General: comfortable and no acute distress Orientation/consciousness: patient oriented x3 HEENT Other: Unremarkable Head: Yes normal to inspection Neck Neck: Yes normal visual inspection Chest Chest palpation & inspection: normal inspection of the chest Resp Auscultation: clear to auscultation bilaterally Cardio Palpation: normal PMI Heart sounds: S1 normal heart sound present, S2 normal heart sound present, no gallops, no murmurs and no rubs GI Palpation (GI): Soft to palpation Back/Spine/Pelvis Other: unremarkable Skin General skin exam: no rashes or lesions noted Neuro General: patient oriented x3 Extrem General: Yes normal to inspection Psych Mental Status: mental status grossly normal Office Procedures EKG Details: EKG with underlying sinus rhythm at 81/Min; no ischemic changes; [place] [id number], Complete Assessment & Plan Assessment & Plan (1) Seizure-like activity: Code(s): R56.9 - Unspecified convulsions Category: Medical Plan Clinical exam not suggestive of any significant murmurs. EKG shows normal rhythm and no findings like long QT or pre-excitation. EKG reported suggestive of seizure disorder. After starting Keppra, mother states symptoms resolved completely. At this time, main suspicion is more seizure than anything cardiac. Advised mother to monitor the situation and if there are events happening in spite of the above medication, then to contact us. In that case, consider cardiac workup. Mother agrees. Coding Level of Care Code New Pt Level 3 (49990) Diagnoses Seizure-like activity R56.9 CPT Codes EKG - CPT: 18710-[id number], Complete ([id number])
[2024-07-20 09:23] VITALS: BP 110/76; PULSE 81; BMI 38.6
--- OUTSIDE RECORDS SUMMARY | 2024-07-20 09:29 | XMS_ITS | Encounter Summary ---
Author Organization [facility] Address [address] [place] [address] Phone Care Team Providers Care Supervisor Phosphorus Processing Name Role Phone Summer Walter NP Primary Care Provider [phone] Encounter Details Date Type Department Care Team (Late st Contact Info) Description 06/27/2017 Conversion Encounter [facility] [address] [place] [address] Galindo Arellano MD Social History Tobacco Use [...] on filedocumented in this encounter Care Teams Supervisor Phosphorus Processing Relationship Specialty Start Date End Date Summer Walter NP [address] [place] [address] PCP - General Pediatrics 05/19/22 01/11/24 documented as of this encounter
== END 2024-07-20 10:11 | disposition home or self-care (01) ==
LOC: HO.HCS 08:55
PROVIDERS: PCP Family Medicine; Visit Provider Internal Medicine
DX: R56.9 Unspecified convulsions (principal)
CPT/HCPCS: 93010; 99203

== ENCOUNTER → 2024-07-20 08:55 | Outpatient (BNVA) | payer OTHER, SELFPAY | PROVIDERS: PCP Family Medicine; Visit Provider Internal Medicine | DX: R55 Syncope and collapse (principal); R56.9 Unspecified convulsions; Q90.9 Down syndrome, unspecified | CPT/HCPCS: 93005; 99202 ==

== ENCOUNTER 2024-10-04 07:50 | Outpatient (AMB) | payer OTHER, SELFPAY ==
[2024-10-04 07:53] VITALS: BP 112/72; PULSE 78; O2SAT 97; BMI 40.5
--- NOTE | 2024-10-04 07:53 | MHC.OFFVIS ---
Vital Signs 10/04/24 07:53 Height 4 ft 7.5 in Weight 177 lb 6 oz BMI 40.5 BP 112/72 Blood Pressure Location Lt brachial Position Sitting Pulse 78 Pulse Source Pulse Oximeter Pulse Oximetry (%) 97 Oxygen Delivery Method Room Air Intake Visit Reasons: Follow up Intake Note: Patient presents follow up Seizure/Sleep, EEG in chart, Cardio seen 07/20. No show HST 05/10.Appointment was cx scheduling never called back to r/s gave number to call to r/s. Accompanied by: Mother Allergies No Known Allergies Allergy (Verified 10/04/24 07:57) HPI Comments Details: 23 y/o Female with Downs sydnrome comes for evaluation of possible seizures. 04/2024 EEG abnormal spikes. She is accompanied by her mother. she is functional and is independent in all her AADLs. Mom notices she shakes her head back Her mother helps with washing her hair. She graduated from [employer] in [facility] and is waiting for placement she had life skill classes after she graduated school. No behavior issues, no mood issues. she sleeps ok in bed by 8pm, wakes up at 6am, with 1-2 bathroom breaks. Mom notices loud snoring. Denies gasping and apneas. Denies parasomnias. Denies bruxism, denies clenching of jaws and morning headaches. Her periods are regular. Her mother describes episodes of wobbling while standing will lean forward, has shaking in her hands and slumps down. she stares and becomes non-responsive for few seconds. The whole episode may last for few minutes. she has had 3-4 episodes in the span of a year, though her body jerks with swaying back and forth this has been on-ging for years. no tongue biting no urinary incontinence. all episodes happen when she is standing. It starts with her wobbly and falls .No post event confusion.After her last episode she had headaches. she was seen at ED - her vitals were stable , EKG was normal. She has dysphagia not able to swallow the tablets. She likes Pork chops and chilli cheeseburgers, her food must be cut down into small bites, doesn't like bread due to fear of it getting stuck due to the high palette. . [facility] Medical History Snoring Pre-syncope Down's syndrome Surgical History No pertinent past surgical history Family History Mother Hypothyroid Breast tumor Osteopenia High cholesterol Father High cholesterol Diabetes Social History Household Members: Family Housing: House Alcohol intake: never Patient Tobacco Use Status: Never used Tobacco e-Cigarette/Vaping Use: Never Used service: No Current occupational status: employed Current occupation: works at a [employer] Cognitive needs: No Hearing needs: No Vision needs: Yes (Patient wears glasses.) Female Reproductive History Menstrual Age of Menarche: 14 Physical Exam Vital Signs: Last Vital Signs Pulse 78 10/04/24 07:53 BP 112/72 10/04/24 07:53 Pulse Ox 97 10/04/24 07:53 Oxygen Delivery Method Room Air 10/04/24 07:53 BMI result Body Mass Index 40.5 Const General: cooperative, healthy appearing, comfortable and no acute distress Nutritional Appearance: obese Orientation/consciousness: oriented to person and oriented to place Eyes Pupils: Equal, round and reactive pupils present Neuro Other: Responds to simple questions in single words Gait- narrow based Fine motor coordination- decreased lizbet- decreased FFM and foot taps, mild increased tone Mallamaptti grade 4 Large tongue wide set eyes General: oriented to person and oriented to place Cranial nerves: Yes Facial sensation intact/muscles of mastication intact, Yes Equal, round and reactive pupils present, Yes Nystagmus not present, Yes Normal facial strength present and Yes Midline tongue present Cognition (Neuro): abnormal cognition Motor exam (neuro): 5/5 motor strength present throughout Results Reviewed Results Reviewed: IMPRESSION: Abnormal EEG suggestive of bitemporal, left more than right, irritability suggestive of underlying tendency for seizure disorder. MR/MR head/brain wo con IMPRESSION: Limited MRI of the brain with motion artifacts. Otherwise, no hippocampal pathology or epileptogenic focus identified. Assessment & Plan Assessment & Plan (1) Excessive daytime and night-time sleepiness: Comment: psg due to + EEG for seizures Code(s): G47.19 - Other hypersomnia Category: Medical (2) Seizure-like activity: Code(s): R56.9 - Unspecified convulsions Category: Medical (3) Pre-syncope: Code(s): R55 - Syncope and collapse Category: Medical (4) Down's syndrome: Code(s): Q90.9 - Down syndrome, unspecified Category: Medical (5) Snoring: Code(s): R06.83 - Snoring Category: Medical (6) Fatigue: Code(s): R53.83 - Other fatigue Category: Medical Qualifiers: Fatigue type: chronic, unspecified Qualified Code(s): R53.82 - Chronic fatigue, unspecified Plan PSG to r/o yvon. EEG is positive for seizure disorder. Continue Keppra 500mg (5mL)q12 hours. will discuss adjusting to an alternative like trileptal or topiramate at next f/u. Mom is concerned about weight gain on Keppra. Labs to r/o nutritional deficiencies. Orders: Orders Vitamin D 25-OH Total Today Q90.9 - Down syndrome, unspecified, R53.83 - Other fatigue Vitamin B6 Today Q90.9 - Down syndrome, unspecified, R53.83 - Other fatigue Vitamin B1 Today Q90.9 - Down syndrome, unspecified, R53.83 - Other fatigue Methylmalonic Acid Today G47.9 - Sleep disorder, unspecified, Q90.9 - Down syndrome, unspecified, R53.83 - Other fatigue Ferritin Today Q90.9 - Down syndrome, unspecified, R53.83 - Other fatigue Complete Blood Count no Diff Today Q90.9 - Down syndrome, unspecified, R53.83 - Other fatigue Comprehensive Met. Panel Today Q90.9 - Down syndrome, unspecified, R53.83 - Other fatigue Vitamin B12 and Folate Today Q90.9 - Down syndrome, unspecified, R53.83 - Other fatigue TSH reflex Free T4 Today Q90.9 - Down syndrome, unspecified, R53.83 - Other fatigue Homocysteine Today G47.9 - Sleep disorder, unspecified, Q90.9 - Down syndrome, unspecified, R53.83 - Other fatigue Patient Instructions: Sleep Hygiene provided: set a scheduled bedtime and wake time to help regulate the circadian rhythm and balance the release of pituitary hormones. Sleep in a dark room, temperatures below 68 degrees, and no devices n bed. Limit caffeinated products 6 hours prior to bed, and limit fluids 2-4 hours prior to bed. Gentle night yoga, diffusing essential oils, and playing soft music can be relaxing. Coding Level of Care Code Est Pt Level 4 (07380) Diagnoses Excessive daytime and night-time sleepiness G47.19 Seizure-like activity R56.9 Pre-syncope R55 Down's syndrome Q90.9 Snoring R06.83 Chronic fatigue R53.82 Fatigue type: chronic, unspecified Sleep Questionnaire Difficulty falling asleep: No Difficulty staying asleep?: No Number of arousals: 2 Snoring: Yes Witnessed apneas: No Gasping arousals: No Nocturia: No GERD: Yes Vivid dreams: No Acting out dreams: No Abnormal behavior in sleep: No Abnormal movements in sleep: No Morning headaches: No Excessive daytime sleepiness: Yes Daytime naps: No Restless legs: No Hallucinations: No Sleep paralysis: No Drop attacks: Yes Sleep Study: No CPAP: No
--- OUTSIDE RECORDS SUMMARY | 2024-10-04 07:53 | XMS_ITS | Clinical Summary ---
Author Organization [facility] Address [address] [place] [address] Phone Care Team Providers Care Custom Designer Name Role Phone Unavailable Primary Care Provider [...] 11/17/2016 Overview (11/19/2017): Normal hearing eval at [place] 2017 Flat feet - orthotics at [facility] Followed by Dr. Medrano for ophthalmology Assessment [...] for hearing evaluation. Mom will call either [place] or [facility] to schedule. Suggested mom discuss a referral to athlete marketing agent with endo or GI. Assessment & Plan (03/14/2019 2:02 PM EST): Annette is doing great in 11th grade. Reviewed vaccines that she is due for, mom wanted to discuss with dad prior to administering. Return at any time. Assessment & Plan (11/19/2017 1:18 PM EDT): Doing well. Parents working on getting Annette to increase activity, try new foods, vegetables. Planning on meeting with athlete marketing agent at [facility]. Normal hearing last year at [place] and upcoming eye appt with Dr. Medrano. I would like to check TSH and Celiac as these were not done. Recommended bringing Annette to the [facility] pediatric specialty office for blood draw to [...] 104 08/26/2022 9:54 AM EDT Temperature 37 C (98.6 F) 08/26/2022 9:43 AM EDT Respiratory Rate - [...] 03/07/2023 03/07/2013, 11/17/2005, 05/17/2003, Additional history exists COVID-19 Vaccine ( - season) 2023 Influenza Vaccines (#1) 2024 12/07/19 09, 11/29/2006, 11/23/2005, Additional history exists Hepatitis B Vaccines Completed 08/18/2002, 2001, 2001 Pneumococcal Vaccine Completed 11/17/2002, 05/19/2002, 03/17/2002, Additional history exists HIB Vaccines Completed 01/30/2003, 05/09, 03/17/2002, Additional history exists IPV Vaccines Completed 11/17/2005, 09/2003, 03/17/2002, Additional history exists MMR Vaccines Completed 11/17/2005, 01/30/2003 Varicella Vaccines Completed 11/29/2006, 11/17/2002 Meningococcal Vaccine Aged Out 03/07/2013 No leanna basilia eligible based on patient's age to complete this topic Hepatitis A Vaccines Aged Out No long er eligible based on patient's age to complete this topic Insurance [facility]
--- OUTSIDE RECORDS SUMMARY | 2024-10-04 07:53 | XMS_ITS | Clinical Summary ---
Author Organization [employer] Address [address] [place] [address] Care Team Providers Care Mineral Engineer Name Role Phone Unavailable Primary Care Provider Unavailabl e Social History Tobacco Use Types Packs/Day Years Used Date Smoking Tobacco: Never Assessed Comments Unknown Sex and Gender Information Value Date Recorded Sex Assigned at Not on file Legal Sex Female 11:23 AM EST Gender Identity Not on file Sexual Orientation Not on file Plan of Treatment Health Maintenance Due Date Last Done Comments Chlamydia and Gonorrhea Screening 2001 Depression Screening 2001 HIV Screening 2001 SDOH Screening 2001 Disability Screening 2001 Alcohol/Substance Use Screening 2013 Tobacco Screening 2013 Family Planning (PISQ) 2016 HPV Vaccines (1 - 3-dose series) 2016 Meningococcal B Vaccine (1 o f 2 - Standard) 2017 Hepatitis C Screening 11/15/2019 DTaP/Tdap/Td Vaccines (1 - Tdap) 2020 Hepatitis B Vaccines (1 of 3 - 19+ 3-dose series) 2020 Pap Smear 2022 COVID-19 Vaccine (1 - 2023-2 5 season) 2023 Influenza Vaccine (#1) 2024 Zoster Vaccines (1 of 2) 11/15/2051 RSV Patients and Pa tients Aged 60 years or older (1 - 1-dose 75+ series) 2076 HIB Vaccines Aged Out No longer eligi ble based on patient's age to complete this topic Hepatitis A Vaccines Aged Out No long er eligible based on patient's age to complete this topic IPV Vaccines Aged Out No longer eligi ble based on patient's age to complete this topic Meningococcal Vaccine Aged Out No leanna basilia eligible based on patient's age to complete this topic Pneumococcal Vaccine: Pediat rics (0 to 5 Years) and At-Risk Patients (6 to 49) Years Aged Out No longer eligible b ased on patient's age to complete this topic RSV under 20 months Aged Out No longe r eligible based on patient's age to complete this topic Rotavirus Vaccines Aged Out No longer eligible based on patient's age to complete this topic
--- OUTSIDE RECORDS SUMMARY | 2024-10-04 07:53 | XMS_ITS | Encounter Summary ---
Author Organization [facility] Address [address] [place] [address] Phone Care Team Providers Care Sock Boarder Name Role Phone Summer Walter NP Primary Care Provider Encounter Details Date Type Department Care Team (Late st Contact Info) Description 06/27/2017 Conversion Encounter [facility] [address] [place] [address] Galindo Arellano MD Social History Tobacco Use [...] on filedocumented in this encounter Care Teams Sock Boarder Relationship Specialty Start Date End Date Summer Walter NP [address] [place] [address] PCP - General Pediatrics 05/19/22 01/11/24 documented as of this encounter
== END 2024-10-04 08:54 | disposition home or self-care (01) ==
LOC: HO.HSMS 07:51
PROVIDERS: PCP Family Medicine; Visit Provider Physician Assistant Medical
DX: G47.19 Other hypersomnia (principal); R56.9 Unspecified convulsions; R55 Syncope and collapse; Q90.9 Down syndrome, unspecified; R06.83 Snoring; R53.82 Chronic fatigue, unspecified
CPT/HCPCS: 99214

== ENCOUNTER → 2024-10-04 07:50 | Outpatient (BNVA) | payer OTHER, SELFPAY | PROVIDERS: PCP Family Medicine; Visit Provider Physician Assistant Medical | DX: R56.9 Unspecified convulsions (principal); G47.19 Other hypersomnia; R55 Syncope and collapse; Q90.9 Down syndrome, unspecified; R06.83 Snoring; R53.82 Chronic fatigue, unspecified | CPT/HCPCS: 99212 ==

== ENCOUNTER 2024-10-12 07:39 | Outpatient (AMB) | payer OTHER, SELFPAY ==
--- OUTSIDE RECORDS SUMMARY | 2024-10-12 07:43 | XMS_ITS | Clinical Summary ---
Author Organization [facility] Address [address] [place] [address] Phone Care Team Providers Care Diamond Sizer Name Role Phone Unavailable Primary Care Provider [...] 11/17/2016 Overview (11/19/2017): Normal hearing eval at [place] 2017 Flat feet - orthotics at [facility] Followed by Dr. Medrano for ophthalmology Assessment [...] for hearing evaluation. Mom will call either [place] or [facility] to schedule. Suggested mom discuss a referral to lens mounter with endo or GI. Assessment & Plan (03/14/2019 2:02 PM EST): Annette is doing great in 11th grade. Reviewed vaccines that she is due for, mom wanted to discuss with dad prior to administering. Return at any time. Assessment & Plan (11/19/2017 1:18 PM EDT): Doing well. Parents working on getting Annette to increase activity, try new foods, vegetables. Planning on meeting with lens mounter at [facility]. Normal hearing last year at [place] and upcoming eye appt with Dr. Medrano. I would like to check TSH and Celiac as these were not done. Recommended bringing Annette to the [facility] pediatric specialty office for blood draw [...] age to complete this topic Insurance [facility]
--- OUTSIDE RECORDS SUMMARY | 2024-10-12 07:43 | XMS_ITS | Encounter Summary ---
Author Organization [facility] Address [address] [place] [address] Phone Care Team Providers Care Chemical Applicator Name Role Phone Summer Walter NP Primary Care Provider [phone] Encounter Details Date Type Department Care Team (Late st Contact Info) Description 06/27/2017 Conversion [facility]counter [facility] [address] [place] [address] Galindo Arellano MD Social History Tobacco Use [...] on filedocumented in this encounter Care Teams Chemical Applicator Relationship Specialty Start Date End Date Summer Walter NP [address] [place] [address] PCP - General Pediatrics 05/19/22 01/11/24 documented as of this encounter
--- OUTSIDE RECORDS SUMMARY | 2024-10-12 07:43 | XMS_ITS | Clinical Summary ---
Author Organization [employer] Address [address] [place] [address] Care Team Providers Care Operations Analyst Name Role Phone Unavailable Primary Care Provider [...] COVID-19 Vaccine (1 - 2023-2 5 season) 2024 Influenza Vaccine (#1) 2024 Zoster Vaccines (1 [...]
--- NOTE | 2024-10-12 08:01 | A.OFFPC_ITS ---
Vital Signs 10/12/24 08:03 Height 4 ft 7.5 in Weight 178 lb 4 oz BMI 40.7 BP 110/82 Blood Pressure Location Lt brachial Position Sitting Respiration 12 Pulse 53 Pulse Source Pulse Oximeter Temp 98.2 F Temp Source Oral Pulse Oximetry (%) 99 Oxygen Delivery Method Room Air Intake Visit Reasons: CPE Intake Note: Physical News Assistant Required: No Allergies No Known Allergies Allergy (Verified 10/12/24 08:06) Tobacco use date assessed: 10/12/24 Dental Screening Dental Screen Date: 10/12/24 Did you have a dental visit in the last 12 months?: Yes Did you have a dental problem in the last 6 months where you did not have access to dental care?: No Was dental information given to patient?: Patient has dentist HPI CPE HPI Details Patient is a 23-year-old female with a significant past medical history of Down syndrome presenting today for a physical exam. She normally follows with Dr. Lee. She is accompanied today by her mother who provides most of the history. -patient lives at home with both parents and goes to school. Recently started with increased activities of walking and biking. She does have flat feet and states that walking long distances is painful. Neuro: Recently diagnosis seizures and started on Keppra. She is getting a sleep study. General: Tolerating the Keppra but is experiencing weight gain. She has gained close to 20 lb. Family is interested in seeing a animal care technician. GI: Has a history of elevated LFTs. Mother believes it is related to diet. Hot Water Heater Installer: Recently saw Gynecology for irregular menses but did not have any preventative exams. Would feel better going outside of here. She is not sexually active. [facility] Medical History Snoring Pre-syncope Down's syndrome Surgical History No pertinent past surgical history Family History Mother Hypothyroid Breast tumor Osteopenia High cholesterol Father High cholesterol Diabetes Social History Household Members: Family Housing: House Alcohol intake: never Patient Tobacco Use Status: Never used Tobacco e-Cigarette/Vaping Use: Never Used service: No Current occupational status: employed Current occupation: works at a [employer] Cognitive needs: No Hearing needs: No Vision needs: Yes (Patient wears glasses.) Female Reproductive History Menstrual Age of Menarche: 14 Questionnaire PHQ-9 Over the last 2 weeks, how often have you been bothered by any of the following problems? 1. Little interest or pleasure in doing things: not at all 2. Feeling down, depressed, or hopeless: not at all 3. Trouble falling or staying asleep, or sleeping too much: not at all 4. Feeling tired or having little energy: not at all 5. Poor appetite or overeating: not at all 6. Feeling bad about yourself - or that you are a failure or have let yourself or your family down: not at all 7. Trouble concentrating on things, such as reading the newspaper or watching television: not at all 8. Moving or speaking so slowly that other people could have noticed. Or the opposite - being so fidgety or restless that you have been moving around a lot more than usual: not at all 9. Thoughts that you would be better off or of hurting yourself in some way: not at all Total score: 0 Depression Screening Interpretation: Negative Depression Screening Done: Yes 76077 - PHQ-9 Billing: Yes Source: Developed by Drs. Walter Luevano, Amna Noonan, Juve Urrutia and colleagues, with an educational ashley from [employer]. Thrive Questionnaire Date Thrive assessed: 10/11/24 I am a: Patient What is your living situation today?: I have a steady place to live Within the past 12 months, did the food you bought not last and you didn't have the money to get more?: Never true Within the past 12 months, did you worry whether your food would run out before you got money to buy more?: Never true Do you have trouble paying for medicines?: No Do you have trouble getting transportation to medical appointments?: No Do you have trouble paying your heating and electricity bill?: No Do you have trouble taking care of your child, family member or friend?: No Do you have trouble with day-to-day activities such as bathing, preparing meals, shopping, managing finances, etc.?: No Are you currently unemployed and looking for a job?: No Are you interested in more education?: No Please select the resources that you would like help with: None Currently or been in a relationship where the following occur: No concerns reported THRIVE Score: 0 AUDIT C Alcohol Use Questionnaire (AUDIT-C) 1. How often do you have a drink containing alcohol?: Never 3. How often do you have six or more drinks on one occasion?: Never Total Score: 0 BETH-7 AMB Questionnaire BETH-7 Date BETH - 7 assessed: 07/21/23 Feeling nervous, anxious, or on edge: 0 = Not at all Not being able to stop or control worryin = Not at all Worrying too much about different things: 0 = Not at all Trouble relaxin = Not at all Being so restless that it is hard to sit still: 0 = Not at all Becoming easily annoyed or irritable: 0 = Not at all Feeling afraid as if something awful might happen: 0 = Not at all Total BETH-7 score (0-4 normal; 5-9 mild; 10-14 moderate; 15-21 severe): 0 Source: Developed by Drs. Walter Luevano, Amna Noonan, Juve Urrutia and colleagues, with an educational ashley from [employer]. BETH-7 Assessment Billing BETH-7 Assessment Tool: BETH-7 Assessment 80882 Physical exam (Primary Care) Vital Signs: Last Vital Signs Temp 98.2 F 10/12/24 08:03 Pulse 53 10/12/24 08:03 Resp 12 10/12/24 08:03 BP 110/82 10/12/24 08:03 Pulse Ox 99 10/12/24 08:03 Oxygen Delivery Method Room Air 10/12/24 08:03 BMI result Body Mass Index 40.7 Tobacco/Smoking Status: Tobacco use Status Tobacco use date assessed 10/12/24 10/12/24 08:10 Patient Tobacco Use Status Never used Tobacco 10/12/24 08:01 e-Cigarette/Vaping Use Never Used 10/12/24 08:01 PHQ-9: PHQ-9 Score PHQ-9: Total score 0 10/12/24 08:01 Depression Screening Interpretation: Negative Thrive Assessment: Date of Thrive Assessment Date Thrive assessed 10/11/24 10/12/24 08:01 Currently or been in a relationship where the following occur: No concerns reported Const Orientation/consciousness: patient oriented x3 HENMT Ears: hearing grossly normal bilaterally and TM's normal bilaterally General nose exam: No nasal polyps present Face and sinus: Yes sinuses nontender Mouth: Normal oral and palatal mucosa present Eyes Pupils: Equal, round and reactive pupils present EOM: EOMs intact bilaterally Neck Neck: Yes full ROM and Yes no lymphadenopathy Thyroid: Thyroid normal Chest Chest palpation & inspection: normal inspection of the chest Resp Auscultation: clear to auscultation bilaterally Cardio Rate: regular rate Rhythm: regular rhythm Heart sounds: S1 normal heart sound present and S2 normal heart sound present Peripheral pulses: Peripheral pulses 2+ throughout GI Other: Soft, nontender Auscultation: normal bowel sounds Rectal Exam - Female: deferred General: Yes no CVA tenderness Back/Spine/Pelvis Other: Nontender Back: no CVA tenderness Skin General skin exam: no rashes or lesions noted Neuro General: patient oriented x3, gait normal and deep tendon reflexes 2+ bilaterally Cranial nerves: Yes Equal, round and reactive pupils present Motor exam (neuro): 5/5 motor strength present throughout Extrem General: Yes normal to inspection and Yes full ROM Psych Affect: normal affect Attitude: cooperative Results Reviewed Results Reviewed: Laboratory Tests 07/21/23 08/11/23 04/07/24 12:46 07:48 08:38 WBC 9.4 RBC 4.87 Hgb 15.7 Hct 46.3 Plt Count 343 D Sodium 140 Potassium 4.1 Chloride 105 Carbon Dioxide 28 Anion Gap 11 L BUN 9 Creatinine 0.87 Estimated GFR > 60 Fasting Glucose 88 Hgb A1c (Clinic) 5.3 AST 42 H 38 H ALT 51 H 48 H Alkaline Phosphatase 79 Total Protein 8.0 Albumin 4.2 Triglycerides 209 H Cholesterol 181 LDL Cholesterol, Calc 94 HDL Cholesterol 46 Urine Creatinine Urine Microalbumin Microalb/Creat Ratio 04/07/24 08:45 WBC RBC Hgb Hct Plt Count Sodium Potassium Chloride Carbon Dioxide Anion Gap BUN Creatinine Estimated GFR Fasting Glucose Hgb A1c (Clinic) AST ALT Alkaline Phosphatase Total Protein Albumin Triglycerides Cholesterol LDL Cholesterol, Calc HDL Cholesterol Urine Creatinine 86.80 Urine Microalbumin < 5.0 Microalb/Creat Ratio TNP Coding Level of Care Code Est Pt Prev Care 18-39y(33944) Diagnoses Routine general medical examination at health care facility Z00.00 Family history of diabetes mellitus Z83.3 Elevated LFTs R79.89 Severe obesity (BMI >= 40) E66.01 Additional Codes PHQ-9 - 14959 - PHQ-9 Billing: Yes ([id number]) BETH-7 Assessment Billing - BETH-7 Assessment Tool: BETH-7 Assessment 06282 ([id number]) Assessment & Plan Assessment & Plan (1) Routine general medical examination at health care facility: Code(s): Z00.00 - Encounter for general adult medical examination without abnormal findings Plan: Health maintenance reviewed Referred to animal care technician and painter helper sign (2) Family history of diabetes mellitus: Code(s): Z83.3 - Family history of diabetes mellitus Category: Medical Plan: We discussed diet and lifestyle modifications (3) Elevated LFTs: Code(s): R79.89 - Other specified abnormal findings of blood chemistry Category: Medical Plan: As above. Abdominal ultrasound ordered. Follow up pending test results (4) Severe obesity (BMI >= 40): Code(s): E66.01 - Morbid (severe) obesity due to excess calories Category: Medical Plan: Referral to animal care technician Orders: Orders US abdomen comp w elastography Today E66.01 - Morbid (severe) obesity due to excess calories, R79.89 - Other specified abnormal findings of blood chemistry Referrals Machine Setup Operator Nutrition Referral E66.01 - Morbid (severe) obesity due to excess calories, Q90.9 - Down syndrome, unspecified, R79.89 - Other specified abnormal findings of blood chemistry, Z83.3 - Family history of diabetes mellitus ROUTE JUMPER Referral Z01.419 - Encounter for gynecological examination (general) (routine) without abnormal findings Patient Instructions: put in a referral to airam carter -animal care technician and ruby on rails consultant at [facility] in [place]
[2024-10-12 08:03] VITALS: BP 110/82; PULSE 53; RESP 12; TEMP 36.8; O2SAT 99; BMI 40.7
== END 2024-10-12 08:31 | disposition home or self-care (01) ==
LOC: HO.HMCFM 07:40
PROVIDERS: PCP Family Medicine; Visit Provider Physician Assistant
DX: Z00.00 Encounter for general adult medical examination without abnormal findings (principal); E66.01 Morbid (severe) obesity due to excess calories; Z68.41 Body mass index [BMI] 40.0-44.9, adult; Z83.3 Family history of diabetes mellitus; R79.89 Other specified abnormal findings of blood chemistry

== ENCOUNTER → 2024-10-12 07:39 | Outpatient (BNVA) | payer OTHER, SELFPAY | PROVIDERS: PCP Family Medicine; Visit Provider Physician Assistant | DX: Z00.00 Encounter for general adult medical examination without abnormal findings (principal); R79.89 Other specified abnormal findings of blood chemistry; E66.01 Morbid (severe) obesity due to excess calories; Q90.9 Down syndrome, unspecified; Z83.3 Family history of diabetes mellitus; Z68.41 Body mass index [BMI] 40.0-44.9, adult | CPT/HCPCS: 96127; 99395 ==

== ENCOUNTER → 2024-11-17 20:30 | Outpatient (REF) | payer OTHER, SELFPAY | LOC: HO.SL 20:30 | PROVIDERS: PCP Family Medicine; Visit Provider Physician Assistant Medical | DX: G47.19 Other hypersomnia (principal) | CPT/HCPCS: 95810 ==

== ENCOUNTER → 2024-11-18 00:30 | Outpatient (BNV) | payer OTHER, SELFPAY | PROVIDERS: PCP Family Medicine; Visit Provider Psychiatry & Neurology Neurology | DX: G47.33 Obstructive sleep apnea (adult) (pediatric) (principal) | CPT/HCPCS: 95810 ==

== ENCOUNTER 2024-12-22 08:00 | Outpatient (REF) | payer OTHER, SELFPAY ==
--- NOTE | ~2024-12-22 | US_ITS ---
EXAMINATION: US COMPLETE ABDOMEN WITH LIVER ELASTOGRAPHY CLINICAL INFORMATION: Morbid obesity COMPARISON: None available. TECHNIQUE: Real-time imaging of the abdominal viscera. Noninvasive ultrasound liver fibrosis assessment is performed using Radha ElastPQ point quantification shear wave elastography (pSWE) with a C5-2 MHz transducer. Multiple elastography samples are obtained. FINDINGS: PANCREAS: The visualized pancreatic head and body are normal in appearance. The remainder of the pancreas is obscured from visualization by the overlying bowel gas. ABDOMINAL AORTA: Mid and distal aorta is obscured. Proximal aorta is of normal caliber. INFERIOR VENA CAVA: Visualized portions are normal. LIVER: The liver demonstrates normal contour. Increased parenchymal echogenicity.. Focus of fatty sparing. No focal lesion or intrahepatic biliary duct dilatation. The right lobe measures 18 cm in length. The left lobe measures 16 cm in length. Portal flow is hepatopedal Shear wave liver elastography median stiffness is 0.99 m/s (reference: normal median stiffness is 1.3 m/s or less). IQR/median stiffness to assess sampling precision is 0.23 (reference: good quality data set is IQR/median stiffness of 0.15 or less). GALLBLADDER: The gallbladder is physiologically distended without evidence of stones, sludge, polyps, wall thickening or pericholecystic fluid. COMMON BILE DUCT: Normal in caliber measuring 0.3 cm in diameter. RIGHT KIDNEY: No hydronephrosis. No renal calculi or focal parenchymal lesions. The kidney measures 10.3 cm in maximum dimension. LEFT KIDNEY: No hydronephrosis. No renal calculi or focal parenchymal lesions. The kidney measures 8.9 cm in maximum dimension. SPLEEN: Unremarkable. The spleen measures 8.3 cm in maximum dimension. FREE FLUID: None seen. Examination is limited due to body habitus, patient unable to hold breath. US/US abdomen comp w elastography IMPRESSION: 1. Hepatomegaly. There is generalized increase in hepatic echotexture, consistent with fatty infiltration or hepatocellular disease. Please correlate clinically. No focal hepatic mass or intrahepatic biliary duct dilatation is seen. 2. Liver elastography: Median stiffness 0.99 m/s *Liver Stiffness equal or less than 1.3 m/s: High probability of being normal. 3.IQR/Median value over 0.15 implies a poor quality data set. REFERENCE: Society of Radiologists in Ultrasound Liver Stiffness Thresholds (2020): LIVER STIFFNESS THRESHOLDS: *Liver Stiffness equal or less than 1.3 m/s: High probability of being normal. *Liver Stiffness less than 1.7 m/s: In the absence of other known clinical signs, rules out compensated advanced chronic liver disease. *Liver Stiffness 1.7-2.1 m/s: Suggestive of compensated advanced chronic liver disease but need further test for confirmation. *Liver Stiffness over 2.1 m/s: Rules in compensated advanced chronic liver disease. *Liver Stiffness over 2.4 m/s: Suggestive of clinically significant portal hypertension. QUALITY OF DATA SET: *IQR/Median value equal or less than 0.15 implies a quality data set. *IQR/Median value over 0.15 implies a poor quality data set. SIGNIFICANT CHANGE FROM PRIOR EXAM: Significant change if liver stiffness measurement is 10% or greater from prior exam. OTHER CONSIDERATIONS: The stage of liver fibrosis may be overestimated in the setting of acute hepatitis, liver inflammation, elevated liver function tests, hepatic vascular congestion, obstructive cholestasis, non-fasting state, and infiltrative diseases such as amyloidosis and lymphoma. In some patients with NAFLD, the liver stiffness thresholds for compensated advanced chronic liver disease may be lower. In causes other than viral hepatitis and NAFLD, liver stiffness thresholds are not well established. Electronically signed by: Joseph Paez MD 12/22/2024 03:39 PM [facility]
--- OUTSIDE RECORDS SUMMARY | 2024-12-22 08:02 | XMS_ITS | Clinical Summary ---
Author Organization [facility] Address [address] [place] [address] Phone Care Team Providers Care Lumber Planer Name Role Phone Unavailable Primary Care Provider [...] 11/17/2016 Overview (11/19/2017): Normal hearing eval at [facility] 2017 Flat feet - orthotics at [facility] Followed by Dr. Medrano for ophthalmology [...] for hearing evaluation. Mom will call either [facility] or [facility] to schedule. Suggested mom discuss a referral to cyber security engineer with endo or GI. Assessment & Plan (03/14/2019 2:02 PM EST): Annette is doing great in 11th grade. Reviewed vaccines that she is due for, mom wanted to discuss with dad prior to administering. Return at any time. Assessment & Plan (11/19/2017 1:18 PM EDT): Doing well. Parents working on getting Annette to increase activity, try new foods, vegetables. Planning on meeting with cyber security engineer at [facility]. Normal hearing last year at [facility] and upcoming eye appt with Dr. Medrano. I would like to check TSH and Celiac as these were not done. Recommended bringing Annette to the [facility] pediatric specialty office for blood draw [...] 05/17/2003, Additional history exists Influenza Vaccines (#1) 2024 12/07/19 09, 11/29/2006, 11/23/2005, Additional history exists COVID-19 Vaccine ( season) 2024 Hepatitis B Vaccines Completed 08/18/2002, 2001, 2001 [...]
--- OUTSIDE RECORDS SUMMARY | 2024-12-22 08:02 | XMS_ITS | Encounter Summary ---
Author Organization [facility] Address [address] [place] [address] Phone Care Team Providers Care Consumer Insights Specialist Name Role Phone Summer Walter NP Primary Care Provider [phone] Encounter Details Date Type Department Care Team (Late st Contact Info) Description 06/27/2017 Conversion Encounter [facility] [address] [place] [address] Galindo Arellano MD Social History Tobacco Use [...] on filedocumented in this encounter Care Teams Consumer Insights Specialist Relationship Specialty Start Date End Date Summer Walter NP [address] [place] [address] PCP - General Pediatrics 05/19/22 01/11/24 documented as of this encounter
--- OUTSIDE RECORDS SUMMARY | 2024-12-22 08:02 | XMS_ITS | Clinical Summary ---
Author Organization [employer] Address [address] [place] [address] Care Team Providers Care Assembler Convertible Top Name Role Phone Unavailable Primary Care Provider [...] Pap Smear 2022 COVID-19 Vaccine (1 - 2024-2 6 season) 2024 Influenza Vaccine (#1) 2024 Zoster [...]
== END 2024-12-22 08:01 | disposition home or self-care (01) ==
LOC: HO.US 08:00
PROVIDERS: PCP Family Medicine; Visit Provider Physician Assistant
DX: E66.01 Morbid (severe) obesity due to excess calories (principal); R79.89 Other specified abnormal findings of blood chemistry
CPT/HCPCS: 76700; 76981